=== PATIENT | male | born 1950 ===

== ENCOUNTER 2025-02-05 06:34 | Day surgery (SDC) | payer OTHER ==
[2025-02-05] MEDS ORDERED: MIDAZOLAM HCL 2 MG/2 ML VIAL IV ONE (10:15)
[2025-02-05] MEDS ORDERED: fentaNYL CITRATE 50 MCG/ML AMPUL IV PUSH ONE (10:15)
[2025-02-05] MEDS ORDERED: DIPHENHYDRAMINE HCL 50 MG/ML VIAL 1ML IV ONE (10:15)
== END 2025-02-05 11:00 | disposition home or self-care (01) ==
LOC: AMB-ENDOS 06:34
PROVIDERS: ATTEND Colon & Rectal Surgery
DX: K57.30 Diverticulosis of large intestine without perforation or abscess without bleeding (principal); K63.5 Polyp of colon; K64.0 First degree hemorrhoids; Z86.0100 Personal history of colon polyps, unspecified